=== PATIENT | male | born 1950 | race Asian ===

== ENCOUNTER → 2018-05-27 | Outpatient (CLI) | payer MEDICARE, OTHER | END | disposition home or self-care (01) | LOC: RADPV 10:44 | PROVIDERS: ATTEND Internal Medicine | DX: S33.9XXS Sprain of unspecified parts of lumbar spine and pelvis, sequela (principal); M47.818 Spondylosis without myelopathy or radiculopathy, sacral and sacrococcygeal region; X58.XXXS Exposure to other specified factors, sequela | CPT/HCPCS: 72170 ==